=== PATIENT | male | born 1970 | race Caucasian/White ===

== ENCOUNTER 2017-04-24 09:04 | Emergency (ER) | payer BC ==
[~2017-04-24] VITALS: Ht 175.3 cm; Wt 95.2 kg
[2017-04-24] MEDS ORDERED: B/P MEDICATION PO (09:11)
--- NOTE | 2017-04-24 09:26 | NUR ---
Pt MIGNON OSUNA, reports pt was in shower at gym after a treadmill work-out and became dizzy. Pt c/o left arm numbness, dizziness, slight nausea, and "wierd" feeling in left eye. Pt states that he has had the flu for last 3 days and had not eaten breakfast yet today Pt denies, CP, SOB, vomiting, no other complaints, no distress noted.
--- NOTE | 2017-04-24 09:54 | NUR ---
Pt states that he now remembers feeling a bit of "tightness" in his chest while at the gym.
[2017-04-24 10:26] LABS: BASOPHILS % (AUTO) 0.4 % (0.0-2.0); EOSINOPHILS # (AUTO) 0.1 K/uL (0.0-0.7); EOSINOPHILS % (AUTO) 1.7 % (0.0-7.0); HEMATOCRIT 41.2 % (40-50); HEMOGLOBIN 13.6 G/DL (14.0-18.0); LYMPHOCYTES # (AUTO) 2.1 K/UL (0.8-4.8); LYMPHOCYTES % (AUTO) 46.9 % (20.5-51.5); MEAN CORPUSCULAR HEMOGLOBIN 26.2 UUG (27.0-31.0); MEAN CORPUSCULAR HGB CONC 33 g/dL (32.0-37.0); MEAN CORPUSCULAR VOLUME 79.5 FL (82.0-92.0); MONOCYTES # (AUTO) 0.6 K/UL (0.1-1.30); MONOCYTES % (AUTO) 12.7 % (0.0-11.0); NEUTROPHILS # (AUTO) 1.7 K/UL (1.8-8.9); NEUTROPHILS % (AUTO) 38.3 % (38.5-71.5); PLATELET COUNT (AUTO) 245 K/UL (150-450); RED BLOOD CELL COUNT(AUTO) 5.18 MIL/UL (4.7-6.1); WHITE BLOOD COUNT (AUTO) 4.5 K/UL (4.0-11.2)
[2017-04-24 10:35] LABS: POTASSIUM 3.3 mmol/L (3.5-5.1)
[2017-04-24] MEDS ORDERED: IV NORMAL SALINE 1000 ML BAG IV ONE (10:45)
[2017-04-24 10:47] LABS: BILIRUBIN,DIRECT 0.1 mg/dL (0.0-0.2); BILIRUBIN,TOTAL 0.6 mg/dL (0.2-1.0); TOTAL PROTEIN, SERUM 7.3 g/dL (6.4-8.2)
[2017-04-24] MEDS ORDERED: POTASSIUM BICARBONATE/CIT AC 25 MEQ TABLET.EFF PO ONE (11:00)
[2017-04-24] MEDS ORDERED: POTASSIUM BICARBONATE/CIT AC 25 MEQ TABLET.EFF ONE (11:06)
--- NOTE | 2017-04-24 11:30 | NUR ---
Pt resting in bed, no complaints, no distress noted.
[2017-04-24] MEDS ORDERED: LISINOPRIL 10 MG TABLET PO ONE (12:15)
[2017-04-24] MEDS ORDERED: LISINOPRIL 10 MG TABLET ONE (12:35)
--- NOTE | 2017-04-24 13:18 | NUR ---
Pt resting in bed, no complaints, no distress noted.
--- NOTE | 2017-04-24 13:50 | NUR ---
Repeated EKG, shown to MD [facility] argenis 2nd troponin
[2017-04-24] MEDS ORDERED: ASPIRIN 325 MG TABLET PO ONE (15:00)
[2017-04-24] MEDS ORDERED: ASPIRIN 325 MG TABLET ONE (15:11)
--- NOTE | 2017-04-24 15:15 | NUR ---
Removed IV 20g left hand, intact, site okay, bandaged. Gave pt d/c instructions, verbalized understanding.
[2017-04-24 15:18] VITALS: BP 148/97
== END 2017-04-24 15:20 | disposition home or self-care (01) ==
LOC: ER 09:04
DX: R07.89 Other chest pain (principal); I10 Essential (primary) hypertension; R19.7 Diarrhea, unspecified
CPT/HCPCS: 36415; 70030-TC; 71010; 85025; 85730; 93005; A4663; J7030

== ENCOUNTER 2017-04-28 15:41 | Emergency (ER) | payer BC ==
[~2017-04-28] VITALS: Ht 175.3 cm; Wt 97.5 kg
[~2017-04-28 15:41] MED LIST: B/P MEDICATION PO
[2017-04-28] MEDS ORDERED: LISI10TA5 PO (15:52)
--- NOTE | 2017-04-28 16:15 | NUR ---
MSE DONE BY DR GARCES AT BEDSIDE.
--- NOTE | 2017-04-28 16:37 | NUR ---
Seen in this ER several Days ago for CP. Pt states he has been having headaches, yesterday's was the worst, but w/o sensitivity to light or sound. Pt denies dizziness now, but has had it in the past few days. Pt denies n/v, CP, SOB, no other complaints, no distress noted.
[2017-04-28] MEDS ORDERED: HYDROCODONE/APAP 10-325 MG TABLET PO ONE (16:45)
[2017-04-28] MEDS ORDERED: HYDROCODONE/APAP 10-325 MG TABLET ONE (16:55)
--- NOTE | 2017-04-28 17:03 | NUR ---
Gave pt RX and d/c instructions, verbalized understanding.
== END 2017-04-28 17:10 | disposition home or self-care (01) ==
LOC: ER 15:42
DX: R51 Headache (principal); R42 Dizziness and giddiness; I10 Essential (primary) hypertension
CPT/HCPCS: 70450; 93005; 99284; A4663

== ENCOUNTER 2022-04-16 09:57 | Emergency (ER) | payer BC ==
[~2022-04-16] VITALS: Ht 175.3 cm; Wt 99.8 kg
[~2022-04-16 09:57] MED LIST changes: -B/P MEDICATION PO; +LISI10TA29 PO
--- NOTE | 2022-04-16 10:00 | NUR ---
Patient ambulatory, alert and orientedx4 with complaints of chest tightness and left shoulder pain started this morning. Denies nausea/vomiting, abdominal pain. Vitals stable.
--- NOTE | 2022-04-16 10:10 | NUR ---
MD at bedside, medical screening exam in progress.
[2022-04-16] MEDS ORDERED: ALTEPLASE 100 MG/100 ML VIAL IV ONE (10:15)
[2022-04-16] MEDS ORDERED: METOCLOPRAMIDE HCL 10 MG/2 ML VIAL IV ONE (10:15)
[2022-04-16 11:05] LABS: HEMATOCRIT 40.1 % (36.7-47.1); MEAN CORPUSCULAR VOLUME 77.9 fL (73.0-96.2); PLATELET COUNT (AUTO) 250 K/uL (152-348)
[2022-04-16 11:12] LABS: CREATININE 0.9 mg/dL (0.6-1.3)
[2022-04-16 11:25] LABS: BILIRUBIN,TOTAL 0.5 mg/dL (0.2-1.0)
[2022-04-16] MEDS ORDERED: ACETAMINOPHEN 325 MG TABLET ONE (12:38)
[2022-04-16] MEDS ORDERED: ASPIRIN 81 MG TAB.CHEW ONE (12:39)
[2022-04-16] MEDS ORDERED: ACETAMINOPHEN 325 MG TABLET PO ONE (12:45)
[2022-04-16] MEDS ORDERED: ASPIRIN 81 MG TAB.CHEW PO ONE (12:45)
--- NOTE | 2022-04-16 14:01 | NUR ---
Patient discharged to home in stable condition. Written and verbal after care instructions given. Patient verbalizes understanding of instructions. Stressed follow up or return to ER for worsening s/s.
[2022-04-16 14:02] VITALS: BP 125/80
== END 2022-04-16 14:02 | disposition home or self-care (01) ==
LOC: ER 09:57
DX: R07.89 Other chest pain (principal); I10 Essential (primary) hypertension; Z79.899 Other long term (current) drug therapy
CPT/HCPCS: 36415; 70450; 71045; 84484; 85025; 85610; 93005; A4663

== ENCOUNTER 2024-10-25 15:25 | Emergency (ER) | payer BC ==
[~2024-10-25] VITALS: Ht 175.3 cm; Wt 102.1 kg
[2024-10-25] MEDS ORDERED: ROSU10TA2 PO (16:02)
[2024-10-25] MEDS ORDERED: ONDANSETRON 4 MG/2 ML VIAL ONE (16:40)
[2024-10-25] MEDS ORDERED: MORPHINE SULFATE 2 MG/1 ML DISP.SYRIN ONE (16:40)
[2024-10-25 16:46] LABS: BASOPHILS % (AUTO) 0.1 % (0.0-2.0); EOSINOPHILS % (AUTO) 0.1 % (0.0-7.0); HEMATOCRIT 45.2 % (36.7-47.1); HEMOGLOBIN 14.9 g/dL (12.5-16.3); LYMPHOCYTES # (AUTO) 0.3 K/uL (0.8-4.8); LYMPHOCYTES % (AUTO) 3.1 % (20.5-51.5); MEAN CORPUSCULAR HEMOGLOBIN 26.3 uug (23.8-33.4); MEAN CORPUSCULAR HGB CONC 33 g/dL (32.5-36.3); MEAN CORPUSCULAR VOLUME 80.1 fL (73.0-96.2); MONOCYTES # (AUTO) 0.4 K/uL (0.1-1.30); MONOCYTES % (AUTO) 4.1 % (0.0-11.0); NEUTROPHILS # (AUTO) 9.9 K/uL (1.8-8.9); NEUTROPHILS % (AUTO) 92.6 % (38.5-71.5); PLATELET COUNT (AUTO) 233 K/uL (152-348); RED BLOOD CELL COUNT(AUTO) 5.64 MIL/uL (4.06-5.63); RED CELL DISTRIBUTION WIDTH 14.8 % (12.1-16.2); WHITE BLOOD COUNT (AUTO) 10.7 K/uL (3.6-10.2)
[2024-10-25 16:50] LABS: DIFFERENTIAL COMMENT 1
[2024-10-25] MEDS: IV NORMAL SALINE 1000 ML BAG IV ONE (16:51)
[2024-10-25] MEDS: MORPHINE SULFATE 2 MG/1 ML DISP.SYRIN IV ONE (16:51)
[2024-10-25] MEDS: ONDANSETRON 4 MG/2 ML VIAL IV ONE (16:52)
[2024-10-25 16:54] LABS: *BILIRUBIN,URIN NEGATIVE (NEGATIVE); *BLOOD, URINE NEGATIVE (NEGATIVE); *CLARITY,URINE CLEAR (CLEAR); *COLOR,URINE YELLOW (YELLOW); *KETONES,URINE 2+ (NEGATIVE); *PROTEIN,URINE TRACE (NEGATIVE); *UROBILINOGEN,URINE 0.2 E.U./dl (NORMAL); LEUKOCYTE ESTERASE ,URINE NEGATIVE (NEGATIVE); NITRITE, URINE NEGATIVE (NEGATIVE); UGLUCOSE NEGATIVE (NEGATIVE)
[2024-10-25 16:55] LABS: CALCIUM 9.2 mg/dL (8.5-10.1); CREATININE 1.2 mg/dL (0.6-1.3); POTASSIUM 3.8 mmol/L (3.5-5.1)
[2024-10-25 17:00] LABS: ALBUMIN 3.3 g/dL (3.4-5.0); BILIRUBIN,DIRECT 0.2 mg/dL (0.0-0.2); BILIRUBIN,TOTAL 0.8 mg/dL (0.2-1.0); TOTAL PROTEIN, SERUM 7.8 g/dL (6.4-8.2)
[2024-10-25 17:03] LABS: BACTERIA,URINE NONE SEEN /HPF (NONE SEEN); RBC,URINE 0-3 /HPF (0-3); SQUAMOUS EPITHELIAL CELL,UR FEW /HPF (NONE SEEN); WBC,URINE 0-3 /HPF (0-3)
[2024-10-25] MEDS ORDERED: IOHEXOL 300MG/ML 100 ML INFUS..BTL ONE (18:03)
[2024-10-25] MEDS ORDERED: SWABABLE VALVE TRANSFER SET EA MC ONE (18:03)
[2024-10-25] MEDS ORDERED: IV NORMAL SALINE 250 ML IV ONE (18:04)
[2024-10-25] MEDS ORDERED: ONDA4TAB11 PO (18:23)
[2024-10-25] MEDS ORDERED: PANT40TA49 PO (18:23)
[2024-10-25] MEDS ORDERED: DICY20TA11 PO (19:52)
[2024-10-25 21:16] VITALS: BP 130/88; TEMP 98; O2SAT 97
== END 2024-10-25 21:17 | disposition home or self-care (01) ==
LOC: ER 15:25
DX: R10.30 Lower abdominal pain, unspecified (principal); R11.2 Nausea with vomiting, unspecified; R09.02 Hypoxemia; R19.7 Diarrhea, unspecified; I11.9 Hypertensive heart disease without heart failure; Z20.822 Contact with and (suspected) exposure to COVID-19; Z79.899 Other long term (current) drug therapy
CPT/HCPCS: 99285; 74177; 96374; 71045; 96361; 96375; 87426; 80076; 80048; 81001; 83880; 83690; 85025; 85379; 84484; 36415; 93005 ×2; J2405; Q9967; J2270; J7040; A4606; A4663